=== PATIENT | female | born 1985 | race African-American/Black ===

== ENCOUNTER 2020-01-15 18:23 | Emergency (ER) | payer OTHER ==
[~2020-01-15] VITALS: Ht 180.3 cm; Wt 95.3 kg
--- OUTSIDE RECORDS SUMMARY | 2020-01-15 18:26 | XMS REPORT ---
Author Author [facility] Organization [facility] Address Unknown Phone Unavailable Care Team Providers Care Program Review Director Name Role Phone Unavailable Unavailable Payers Payer Name Policy Type Policy Number Effective Date Expiration Date Problems This patient has no known problems. Allergies, Adverse Reactions, Alerts Allergy Name Allergy Type Status Severity Reaction(s) Onset Date Inactive Date Treating Clinician Comments diphenhydramine DA Active SV 2018-04-02 00:00:00 Medications This patient has no known medications. Results Test Description Test Time Test Comments Text Results Atomic Results Result Comments - XR CHEST 2 V 2019-01-02 17:40:00 Name: LATANYA BARAJAS [facility] : 1985 Age/S: 33 / F [address] [place] Unit #: [id number] Loc: [place] [address] Phys: Iftikhar Lassiter MD Acct: [id number] Dis Date: Status: REG ER PHONE #: [phone] Exam Date: 01/02/2019 4651 FAX #: Reason: cough congestion EXAMS: CPT: [id number] XR CHEST 2 V 91560 Fluoro Time: DAP (Gy m2): Air Kerma (mGy): LOCATION: T18 EXAM: CHEST 2 VIEWS INDICATION: cough congestion COMPARISON: Chest x-ray October 15, 2018. TECHNIQUE: PA and lateral chest radiographs. FINDINGS: Lateral perihilar opacity with peribronchial cuffing. No focal areas of consolidation. No pleural effusion is seen. Heart and mediastinum are normal in size and contour. Bones and peripheral soft ti ssues are unremarkable. IMPRESSION: Findings most concerning for bronchitis. No focal pneumonia is seen. at 1740 Reported and signed by: Nick Rush M.D. CC: Iftikhar Lassiter MD; Janae Bowers NP PAGE 1 Signed Report Name: LATANYA BARAJAS [facility] : 1985 Age/S: 33 / F [address] [place] Unit #: [id number] Loc: [place] [address] Phys: Iftikhar Lassiter MD Acct: [id number] Dis Date: Status: REG ER PHONE #: [phone] Exam Date: 01/02/2019 9981 FAX #: Reason: cough congestion EXAMS: CPT: [id number] XR CHEST 2 V 03476 Fluoro Time: DAP (Gy m2): Air Kerma (mGy): <Continued> Technologist: Dre Ferrell, RT(R)(CT) Trnscb Date/Time: 01/02/2019 (1740) [email or web address] Orig Print D/T: S: 01/02/2019 (0239) PAGE 2 Signed Report
== END 2020-01-15 19:20 | disposition home or self-care (01) ==
LOC: ER 18:23
DX: M79.661 Pain in right lower leg (principal)
CPT/HCPCS: 99282